=== PATIENT | female | born 1990 | race African-American/Black ===

== ENCOUNTER 2020-04-09 21:06 | Emergency (ER) | payer MEDICAID ==
[2020-04-09 21:55] VITALS: BP 124/67
--- NOTE | 2020-04-09 22:03 | Emergency Department Report ---
ED Back Pain/Injury HPI - General Chief Complaint: Back Pain/Injury Stated Complaint: LOWER BACK PAIN Time Seen by Provider: 04/09/20 22:02 Source: patient Limitations: No Limitations - Related Data Previous Rx's Medication Instructions Recorded Last Taken Type Naproxen 500 mg PO BID #20 tablet 12/08/19 Unknown Rx Ondansetron [Zofran Odt] 4 mg PO Q8HR #30 tab.rapdis 12/08/19 Unknown Rx methOCARBAMOL [Robaxin TAB] 500 mg PO Q6H #20 tablet 12/08/19 Unknown Rx Allergies Allergy/AdvReac Type Severity Reaction Status Date / Time mushroom Allergy Unknown Verified 04/09/20 21:53 olive extract Allergy Unknown Verified 04/09/20 21:53 Penicillins Allergy Unknown Verified 12/08/19 20:16 shellfish derived Allergy Unknown Verified 04/09/20 21:53 ED Review of Systems ROS: Stated complaint: LOWER BACK PAIN Other details as noted in HPI ED Past Medical Hx - Past Medical History Previous Medical History?: Yes Hx Diabetes: Yes Hx Seizures: Yes - Surgical History Past Surgical History?: Yes Hx Appendectomy: Yes Additional Surgical History: - Social History Smoking Status: Current Every Day Smoker Substance Use Type: None - Medications Home Medications: Home Medications Medication Instructions Recorded Confirmed Last Taken Type Naproxen 500 mg PO BID #20 tablet 12/08/19 Unknown Rx Ondansetron [Zofran Odt] 4 mg PO Q8HR #30 tab.rapdis 12/08/19 Unknown Rx methOCARBAMOL [Robaxin TAB] 500 mg PO Q6H #20 tablet 12/08/19 Unknown Rx ED Physical Exam - General Limitations: No Limitations ED Course Vital Signs 04/09/20 21:54 Temperature 98.0 F Pulse Rate 106 H Respiratory 16 Rate Blood Pressure 124/67 O2 Sat by Pulse 100 Oximetry Critical care attestation.: If time is entered above; I have spent that time in minutes in the direct care of this critically ill patient, excluding procedure time. ED Disposition Condition: Stable
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
== END 2020-04-10 01:06 | disposition left against medical advice (07) ==
LOC: ED 21:06
DX: M54.5 Low back pain (principal); Z53.21 Procedure and treatment not carried out due to patient leaving prior to being seen by health care provider